=== PATIENT | female | born 1980 | race Two or more races ===

== ENCOUNTER 2017-06-23 17:39 | Emergency (ER) | payer BC ==
[~2017-06-23] VITALS: Ht 167.6 cm; Wt 90.7 kg
[~2017-06-23 17:39] MED LIST: HYDR-2758 PO; NAPR500T AD
[2017-06-23 17:45] VITALS: BP 150/83
--- NOTE | 2017-06-23 18:06 | PHYS DOC ---
Past History Past Medical History: Arthritis, Hypertension Past Surgical History: Tonsillectomy Additional Past Surgical Histo: Left inguinal hernia Smoking: Non-smoker Alcohol Use: Occasionally Drug Use: None Adult General Chief Complaint Chief Complaint: SHORTNESS OF BREATH HPI HPI Patient is a 36 year old female who presents with respiratory complaints. She states this is the third week of having cough, chest pain, and respiratory illness. 3 weeks ago she developed aches, chills, fever, fatigue. She has headache as well. That resolved and then she would have intermittent fever. She' s been seen by her physician and is on day 4 of her Zithromax, and prednisone. She states that palpitations, shortness of air, left-sided chest pain started on . The pain was more sharp however the prednisone has helped and now it is dull. She's no recent travel, does not take oral contraceptives, does not smoke tobacco. No recent tick, or mosquito bites. Review of Systems Review of Systems Constitutional: Intermittent fever or chills Eyes: Denies change in visual acuity, redness, or eye pain HENT: Denies nasal congestion or sore throat Respiratory: See history of present illness Cardiovascular: See history of present illness GI: Denies abdominal pain, nausea, vomiting, bloody stools or diarrhea : Denies dysuria or hematuria Musculoskeletal: Denies back pain or joint pain Integument: Denies rash or skin lesions Neurologic: Intermittent headache, No focal weakness or sensory changes Endocrine: Denies polyuria or polydipsia Physical Exam Physical Exam Constitutional: Well developed, well nourished, no acute distress, non-toxic appearance. HENT: Normocephalic, atraumatic, bilateral external ears normal, oropharynx moist, no oral exudates, nose normal. Eyes: PERRLA, EOMI, conjunctiva normal, no discharge. Neck: Normal range of motion, no tenderness, supple, no stridor. Cardiovascular:Heart rate regular rhythm, no murmur Lungs & Thorax: Bilateral breath sounds clear to auscultation Abdomen: Bowel sounds normal, soft, no tenderness, no masses, no pulsatile masses. Skin: Warm, dry, no erythema, no rash. Back: No tenderness, no CVA tenderness. Extremities: No tenderness, no cyanosis, no clubbing, ROM intact, no edema. Neurologic: Alert and oriented X 3, normal motor function, normal sensory function, no focal deficits noted. Psychologic: Affect normal, judgement normal, mood normal. Current Patient Data Vital Signs Vital Signs Date Time Temp Pulse Resp B/P (MAP) Pulse Ox O2 Delivery O2 Flow Rate FiO2 06/23/17 17:45 98.2 80 18 98 Room Air Vital Signs Date Time Temp Pulse Resp B/P (MAP) Pulse Ox O2 Delivery O2 Flow Rate FiO2 06/23/17 17:45 98.2 80 18 98 Room Air Lab Results Laboratory Tests Test 06/23/17 18:20 White Blood Count 7.7 x10^3/uL (4.0-11.0) Red Blood Count 4.74 x10^6/uL (3.50-5.40) Hemoglobin 14.0 g/dL (12.0-15.5) Hematocrit 42.0 % (36.0-47.0) Mean Corpuscular Volume 89 fL (79-100) Mean Corpuscular Hemoglobin 30 pg (25-35) Mean Corpuscular Hemoglobin Concent 33 g/dL (31-37) Red Cell Distribution Width 14.3 % (11.5-14.5) Platelet Count 292 x10^3/uL (140-400) Neutrophils (%) (Auto) 76 % (31-73) Lymphocytes (%) (Auto) 20 % (24-48) Monocytes (%) (Auto) 4 % (0-9) Eosinophils (%) (Auto) 0 % (0-3) Basophils (%) (Auto) 0 % (0-3) Neutrophils # (Auto) 5.8 x10^3uL (1.8-7.7) Lymphocytes # (Auto) 1.5 x10^3/uL (1.0-4.8) Monocytes # (Auto) 0.3 x10^3/uL (0.0-1.1) Eosinophils # (Auto) 0.0 x10^3/uL (0.0-0.7) Basophils # (Auto) 0.0 x10^3/uL (0.0-0.2) D-Dimer (Stephany) 0.37 mg/L (0.00-0.50) Sodium Level 137 mmol/L (136-145) Potassium Level 4.1 mmol/L (3.5-5.1) Chloride Level 102 mmol/L (98-107) Carbon Dioxide Level 30 mmol/L (21-32) Anion Gap 5 (6-14) Blood Urea Nitrogen 14 mg/dL (7-20) Creatinine 0.9 mg/dL (0.6-1.0) Estimated GFR (Cockcroft-Gault) 70.5 Glucose Level 153 mg/dL (70-99) Calcium Level 9.0 mg/dL (8.5-10.1) Creatine Kinase 89 U/L (26-192) Troponin I Quantitative < 0.017 ng/mL (0-0.055) MC-Mih-M-Type Natriuretic Peptide 73 pg/mL (0-124) EKG EKG EKG was done earlier in the office today at 1636 PM. She has a normal sinus rhythm, rate of 85. No acute ST elevation. Normal axis. This is interpreted by myself at 1830 p.m. Radiology/Procedures Radiology/Procedures Chest x-ray interpreted by myself at 1830 p.m. Normal cardiac silhouette, normal lung [place], no pleural effusions, no distinct infiltrate, normal soft tissues. Course & Med Decision Making Course & Med Decision Making Evaluated patient upon arrival. The concern is pulmonary emboli. lab was sent. Reviewed laboratory data sent with the patient from the office that was done on June 20, 2017. At that time upper count was 6.3 no left shift. Chemistries were unremarkable urinalysis clear. PERC Criteria Assessment: Age > 50: No HR > 100: No 02 < 95%: No H/o DVT/PE: No Recent trauma/surgery: No Hemoptysis No Exogenous Estrogen: No Unilateral Leg swelling: No Pretest probability > 15%: No Less than 2% risk of PE. No further work up is necessary Differential diagnosis for chest pain includes but is not limited to: Pericarditis, myocarditis, endocarditis, pneumothorax, pneumonia, aortic dissection, esophageal spasm, esophagitis, peptic ulcer disease, acute coronary syndrome, mediastinitis, Boerhaave syndrome, musculoskeletal chest wall pain, costochondritis, intercostal strain, rib fracture, pulmonary contusion, pneumonitis, pleural effusion, pericardial effusion, pericardial tamponode, and pleurisy. At 1930 PM: Reviewed all the findings with the patient. Normal d-dimer, unremarkable chest x-ray, lab unremarkable. She was worried about possibility of endocarditis however I do not hear a murmur presently. That would have to be further evaluated with a outpatient echo. We do not have an echo team here at this facility. Added inhaler for her to use 2 puffs 4 times a day minimum. Instructions were given with a spacer while she was here. She still has not finished out her Zithromax I informed her so in fact she is already improved as she describes that the pain has improved. If this is something like mycoplasma is due to take a bit for her to completely eradicate the infection. Dragon Disclaimer Dragon Disclaimer This chart was dictated in whole or in part using Voice Recognition software in a busy, high-work load, and often noisy Emergency Department environment. It may contain unintended and wholly unrecognized errors or omissions. Departure Departure: Impression: Primary Impression: Chest pain of unknown etiology Additional Impressions: Dyspnea Bronchitis Ruled Out: Pulmonary emboli Disposition: HOME, SELF-CARE Condition: STABLE Referrals: WILBERT CROWLEY APRN (PCP) Patient Instructions: Acute Bronchitis Problem Qualifiers Additional Impressions: Dyspnea Dyspnea type: unspecified Qualified Codes: R06.00 - Dyspnea, unspecified CAL LOREDO MD Jun 23, 2017 18:06
[2017-06-23 18:48] LABS: BASO % 0 % (0-3); EOS % 0 % (0-3); LYMPH # 1.5 x10^3/uL (1.0-4.8); LYMPH % 20 % (24-48); MEAN CORPUSCULAR HEMOGLOBIN 30 pg (25-35); MEAN CORPUSCULAR HGB CONC 33 g/dL (31-37); MEAN CORPUSCULAR VOLUME 89 fL (79-100); MONO # 0.3 x10^3/uL (0.0-1.1); MONO % 4 % (0-9); NEUT # 5.8 x10^3uL (1.8-7.7); NEUT % 76 % (31-73); PLATELET COUNT 292 x10^3/uL (140-400); RED BLOOD COUNT 4.74 x10^6/uL (3.50-5.40); RED CELL DISTRIBUTION WIDTH 14.3 % (11.5-14.5); WHITE BLOOD COUNT 7.7 x10^3/uL (4.0-11.0)
[2017-06-23 19:00] LABS: CREATININE 0.9 mg/dL (0.6-1.0); GFR 70.5; POTASSIUM 4.1 mmol/L (3.5-5.1)
[2017-06-23] MEDS: ALBUTEROL SULFATE 8GM INHALER. INH ONE (19:46)
--- NOTE | 2017-06-24 08:13 | RAD ---
Exam performed: One view chest. Indication: Shortness of air for 3 days Date of Service: 06/23/2017 8:03 PM Comparison: None available. Single AP upright portable view chest findings: Cardiomediastinal silhouette is within limits of normal. No acute infiltrates, effusion or pneumothorax is detected. The bony structures are normal. Impression: No acute cardiopulmonary process is detected.
== END 2017-06-23 20:20 | disposition home or self-care (01) ==
LOC: ER 17:39
DX: J40 Bronchitis, not specified as acute or chronic (principal); R51 Headache; I10 Essential (primary) hypertension; M19.90 Unspecified osteoarthritis, unspecified site
CPT/HCPCS: 36415; 71010; 80048; 82550; 83880; 84484; 85025; 85379; 94640; 99285; J7613

== ENCOUNTER → 2017-06-27 | Outpatient (CLI) | payer BC ==
[2017-06-23 17:45] VITALS: BP 150/83
--- NOTE | 2017-06-27 16:26 | RAD ---
PA and lateral chest radiographs 06/27/2017. Clinical History: Shortness of breath and cough for 3 weeks. PA and lateral digital radiographs of the chest were obtained. Comparison study is dated 06/23/2017. The cardiac and mediastinal silhouettes are within normal limits in size and configuration. No pulmonary infiltrate is seen. No pleural effusion or pneumothorax is noted. The osseous structures are grossly intact. Impression: No radiographic evidence of active cardiopulmonary disease.
== END | disposition home or self-care (01) ==
LOC: DXRADRC 15:48
PROVIDERS: ATTEND Nurse Practitioner Family
DX: R05 Cough (principal); R06.02 Shortness of breath
CPT/HCPCS: 71020